=== PATIENT | female | born 1980 | race Two or more races ===

== ENCOUNTER 2018-06-17 15:15 | Inpatient (IN) | payer OTHER ==
[~2018-06-17] VITALS: Ht 167.6 cm; Wt 162.0 kg
[2018-07-15] MEDS ORDERED: PRENATAL TABLE1 EAC3 PO (17:20)
== END 2018-07-17 13:44 | disposition home or self-care (01) | DRG 807 ==
LOC: OB/GYN 07-12 15:15 → LDR 07-15 06:39 → OB/GYN 07-15 06:39 → LDR 07-15 11:36 → OB/GYN 07-15 18:13
PROC: 10E0XZZ Delivery of Products of Conception, External Approach (ICD-10-PCS; principal; 2018-07-15)
PROC: 0KQM0ZZ Repair Perineum Muscle, Open Approach (ICD-10-PCS; 2018-07-15)
PROC: 0W8NXZZ Division of Female Perineum, External Approach (ICD-10-PCS; 2018-07-15)
PROC: 3E033VJ Introduction of Other Hormone into Peripheral Vein, Percutaneous Approach (ICD-10-PCS; 2018-07-15)
PROC: 4A1HXCZ Monitoring of Products of Conception, Cardiac Rate, External Approach (ICD-10-PCS; 2018-07-15)
DX: O70.1 Second degree perineal laceration during delivery (principal); Z37.0 Single live birth; Z3A.40 40 weeks gestation of pregnancy

== ENCOUNTER 2018-07-08 13:18 | Outpatient (CLI) | payer OTHER | END 2018-07-08 15:11 | disposition home or self-care (01) | LOC: NST 13:18 | DX: Z34.83 Encounter for supervision of other normal pregnancy, third trimester (principal) ==

== ENCOUNTER 2018-07-14 10:53 | Outpatient (CLI) | payer OTHER ==
[2018-07-15] MEDS ORDERED: PRENATAL TABLE1 EAC3 PO (17:20)
== END 2018-07-14 11:29 | disposition home or self-care (01) ==
LOC: NST 10:53
DX: Z34.83 Encounter for supervision of other normal pregnancy, third trimester (principal)

== ENCOUNTER 2018-11-07 12:06 | Outpatient (CLI) | payer OTHER ==
[~2018-11-07 12:06] MED LIST: PRENATAL TABLE1 EAC3 PO
== END 2018-11-07 15:58 | disposition home or self-care (01) ==
LOC: MAMO-SONO 12:06
DX: N64.4 Mastodynia (principal); N63.10 Unspecified lump in the right breast, unspecified quadrant; N63.20 Unspecified lump in the left breast, unspecified quadrant; N60.11 Diffuse cystic mastopathy of right breast; Z12.31 Encounter for screening mammogram for malignant neoplasm of breast

== ENCOUNTER 2019-06-09 10:17 | Outpatient (CLI) | payer OTHER | END 2019-06-09 10:24 | disposition home or self-care (01) | LOC: MAMO-SONO 10:17 | DX: N63.10 Unspecified lump in the right breast, unspecified quadrant (principal); N63.20 Unspecified lump in the left breast, unspecified quadrant ==

== ENCOUNTER 2019-09-11 10:30 | Outpatient (CLI) | payer OTHER | END 2019-09-11 10:40 | disposition home or self-care (01) | LOC: SONOGRAMA 10:30 | DX: G57.60 Lesion of plantar nerve, unspecified lower limb (principal) ==

== ENCOUNTER 2019-10-02 11:57 | Outpatient (CLI) | payer OTHER | END 2019-10-02 11:59 | disposition home or self-care (01) | LOC: RAD 11:57 | DX: R82.71 Bacteriuria (principal) ==

== ENCOUNTER 2020-05-13 14:42 | Outpatient (CLI) | payer OTHER | END 2020-05-13 14:51 | disposition home or self-care (01) | LOC: RAD 14:42 | PROVIDERS: ATTEND General Practice | DX: Z11.1 Encounter for screening for respiratory tuberculosis (principal) ==

== ENCOUNTER 2020-10-18 08:42 | Outpatient (CLI) | payer OTHER | END 2020-10-18 09:10 | disposition home or self-care (01) | LOC: SONOGRAMA 08:42 → MAMO-SONO 08:45 → SONOGRAMA 09:10 | PROVIDERS: ATTEND General Practice | DX: M62.89 Other specified disorders of muscle (principal); G57.60 Lesion of plantar nerve, unspecified lower limb ==

== ENCOUNTER → 2021-09-13 09:46 | Outpatient (CLI) | payer OTHER | END | disposition home or self-care (01) | LOC: TOM 09:46 | PROVIDERS: ATTEND Otolaryngology Otology & Neurotology | DX: H93.11 Tinnitus, right ear (principal) ==

== ENCOUNTER → 2022-06-27 | Outpatient (CLI) | payer OTHER | END | disposition home or self-care (01) | LOC: TOM 11:22 | PROVIDERS: ATTEND Otolaryngology | DX: R51.9 Headache, unspecified (principal); G50.1 Atypical facial pain ==

== ENCOUNTER 2022-08-28 09:41 | Outpatient (CLI) | payer OTHER | END 2022-08-28 09:51 | disposition home or self-care (01) | LOC: SONOGRAMA 09:41 | DX: E06.9 Thyroiditis, unspecified (principal); E03.9 Hypothyroidism, unspecified ==